=== PATIENT | male | born 1955 | race Two or more races ===

== ENCOUNTER 2019-06-05 19:36 | Emergency (ER) | payer SELFPAY ==
[~2019-06-05] VITALS: Ht 172.7 cm; Wt 81.2 kg
[2019-06-05 20:00] VITALS: BP 167/92
[2019-06-05] MEDS ORDERED: ORPHENADRINE CITRATE 60 MG/2 ML VIAL. IM ONE (20:30)
[2019-06-05] MEDS ORDERED: KETOROLAC 60 MG/2 ML VIAL. IM ONE (20:30)
--- NOTE | 2019-06-05 21:03 | PHYS DOC ---
Past Medical History Past Medical History: Diabetes-Type I, Hypertension, Prostatitis Additional Past Medical Histor: HEPATITIS Additional Past Surgical Histo: RENAL; NASAL Alcohol Use: None Drug Use: None Adult General Chief Complaint Chief Complaint: Neck Pain HPI HPI Patient is a 63 year old male presenting to the ED with a chief complaint of left upper thoracic paraspinal tenderness. Patient denies injury. Patient states that the pain isn't present for the last couple days. Patient states that the pain is worse when he moves his shoulder. Review of Systems Review of Systems Constitutional: Denies fever or chills [] Eyes: Denies change in visual acuity, redness, or eye pain [] HENT: Denies nasal congestion or sore throat [] Respiratory: Denies cough or shortness of breath [] Cardiovascular: No additional information not addressed in HPI [] GI: Denies abdominal pain, nausea, vomiting, bloody stools or diarrhea [] Musculoskeletal: Pains of pain in the left upper back paraspinal Neurologic: Denies headache, focal weakness or sensory changes [] All other systems were reviewed and found to be within normal limits, except as documented in this note. Current Medications Current Medications Current Medications Medications (Trade) Dose Ordered Sig/Samantha Start Time Stop Time Status Last Admin Dose Admin Ketorolac Tromethamine (Toradol Im) 60 mg 1X ONCE 06/05/19 20:30 06/05/19 20:45 DC 06/05/19 20:51 60 MG Orphenadrine Citrate (Norflex) 60 mg 1X ONCE 06/05/19 20:30 06/05/19 20:45 DC 06/05/19 20:50 60 MG Allergies Allergies Allergies Coded Allergies Type Severity Reaction Last Updated Verified No Known Drug Allergies 06/05/19 No Physical Exam Physical Exam Constitutional: Well developed, well nourished, no acute distress, non-toxic appearance. [] HENT: Normocephalic, atraumatic, point tenderness to the left trapezius muscle area. No erythema. Eyes: PERRLA, EOMI, conjunctiva normal, no discharge. [] Neck: Normal range of motion, no tenderness, supple, no stridor. [] Cardiovascular:Heart rate regular rhythm, no murmur [] Lungs & Thorax: Bilateral breath sounds clear to auscultation [] Abdomen: Bowel sounds normal, soft, no tenderness Skin: Warm, dry, no erythema, no rash. [] Back: No tenderness, no CVA tenderness. [] Extremities: No tenderness, no cyanosis, no clubbing, ROM intact Neurologic: Alert and oriented X 3, normal motor function, normal sensory function, no focal deficits noted. [] Current Patient Data Vital Signs Vital Signs Date Time Temp Pulse Resp B/P (MAP) Pulse Ox O2 Delivery O2 Flow Rate FiO2 06/05/19 20:00 97.8 97 18 167/92 (117) 96 Room Air 97.8 EKG EKG [] Radiology/Procedures Radiology/Procedures [] Course & Med Decision Making Course & Med Decision Making We treat with Toradol IM and Norflex IM. Patient will be discharged home on Flexeril and [place]. Discussed plan of care with patient. Patient is instructed to follow up with PCP in one to 2 days. Appropriate discharge instructions given to patient to return to the ED or to seek immediate medical evaluation. Dragon Disclaimer Dragon Disclaimer This electronic medical record was generated, in whole or in part, using a voice recognition dictation system. Departure Departure Impression: Primary Impression: Muscle strain Disposition: 01 HOME, SELF-CARE Condition: IMPROVED Referrals: NO PCP (PCP) Additional Instructions: Appropriate discharge instructions given to patient to return to the ED or to seek immediate medical evaluation. Patient instructed to follow up with PCP in one to 2 days. Patient instructed to return to the ED if symptoms worsen or if any concerns. Scripts Hydrocodone/Apap 5-325 (NORCO 5-325 TABLET) 1 Each Tablet 1 TAB PO BID, #10 TAB Prov: TAE ECHOLS DO 06/05/19 Cyclobenzaprine Hcl (CYCLOBENZAPRINE HCL) 5 Mg Tablet 1 TAB PO TID for 7 Days, #21 TAB Prov: TAE ECHOLS DO 06/05/19 TAE ECHOLS DO Jun 05, 2019 21:03
[2019-06-05] MEDS ORDERED: HYDR-3164 PO (21:06)
[2019-06-05] MEDS ORDERED: CYCL5TAB PO (21:06)
== END 2019-06-05 21:23 | disposition home or self-care (01) ==
LOC: ER 19:36
DX: S29.012A Strain of muscle and tendon of back wall of thorax, initial encounter (principal); E10.9 Type 1 diabetes mellitus without complications; I10 Essential (primary) hypertension; X58.XXXA Exposure to other specified factors, initial encounter; Y93.89 Activity, other specified; Y92.89 Other specified places as the place of occurrence of the external cause; Y99.8 Other external cause status
CPT/HCPCS: 96372; 99284; J1885; J2360

== ENCOUNTER 2021-05-06 16:56 | Emergency (ER) | payer MEDICARE, MEDICAID ==
[~2021-05-06] VITALS: Ht 167.6 cm; Wt 81.0 kg
[~2021-05-06 16:56] MED LIST: CYCL5TAB PO; HYDR-3164 PO
[2021-05-06 18:42] LABS: BILIRUBIN,URINE SMALL (NEG); CLARITY,URINE CLEAR; COLOR,URINE ORANGE; NITRITE,URINE POSITIVE (NEG); PROTEIN,URINE >=300 mg/dL (NEG-TRACE)
[2021-05-06 18:52] LABS: BACTERIA,URINE MODERATE /HPF (0-FEW); HYALINE CASTS, URINE MODERATE /HPF
[2021-05-06 18:53] LABS: RBC,URINE 0 /HPF (0-2)
[2021-05-06] MEDS ORDERED: MORPHINE SULFATE 2 MG/ML INJ. IVP PRN (19:00)
[2021-05-06] MEDS ORDERED: ACETAMINOPHEN 325 MG TABLET. PO PRN (19:00)
[2021-05-06] MEDS ORDERED: ONDANSETRON PF 4 MG/2 ML VIAL. IVP PRN (19:00)
[2021-05-06] MEDS ORDERED: IV NORMAL SALINE 1000ML BAG 1,000 ML IV ONE (19:00)
[2021-05-06 19:03] VITALS: BP 160/82
[2021-05-06 19:12] LABS: BASO # 0.1 x10^3/uL (0.0-0.2); BASO % 1 % (0-3); EOS # 0.8 x10^3/uL (0.0-0.7); EOS % 7 % (0-3); HEMATOCRIT 33.5 % (39.0-53.0); HEMOGLOBIN 11.9 g/dL (13.0-17.5); LYMPH # 2.2 x10^3/uL (1.0-4.8); LYMPH % 20 % (24-48); MEAN CORPUSCULAR HEMOGLOBIN 30 pg (25-35); MEAN CORPUSCULAR HGB CONC 36 g/dL (31-37); MEAN CORPUSCULAR VOLUME 84 fL (79-100); MONO % 9 % (0-9); NEUT # 6.9 x10^3/uL (1.8-7.7); NEUT % 62 % (31-73); PLATELET COUNT 784 x10^3/uL (140-400); RED BLOOD COUNT 3.99 x10^6/uL (4.30-5.70); RED CELL DISTRIBUTION WIDTH 13.2 % (11.5-14.5)
[2021-05-06] MEDS ORDERED: MORPHINE SULFATE 2 MG/ML INJ. IVP ONE (19:15)
[2021-05-06] MEDS ORDERED: TAMSULOSIN 0.4 MG CAP.ER.24H. PO ONE (19:15)
[2021-05-06 19:23] LABS: CALCIUM 8.8 mg/dL (8.5-10.1); CREATININE 1.7 mg/dL (0.7-1.3); GFR 40.8; POTASSIUM 4.2 mmol/L (3.5-5.1)
[2021-05-06 19:28] LABS: ALBUMIN 3.3 g/dL (3.4-5.0); ALBUMIN/GLOBULIN RATIO 0.8 (1.0-1.7); TOTAL BILIRUBIN 0.4 mg/dL (0.2-1.0); TOTAL PROTEIN 7.2 g/dL (6.4-8.2)
--- NOTE | 2021-05-06 19:41 | PHYS DOC ---
Past Medical History Past Medical History: Diabetes-Type II, Hypertension, Kidney Stone, Prostatitis, UTI Additional Past Medical Histor: HEPATITIS (BAMBIFLO López [employer]) Past Surgical History: Other Additional Past Surgical Histo: kidney stone, nasal sx (BAMBIFLO López [employer]) Smoking Status: Former Smoker Alcohol Use: None Drug Use: None (BAMBIFLO López [employer]) General Adult EDM: Chief Complaint: BACK PAIN - NO INJURY HPI: HPI: Patient is a 65 year old male with history of diabetes type 2, hypertension, kidney stones, UTI, prostatitis, who presents the ED today complaining of mild intermittent mid and low back pain, symptoms have been going on for 15 days. Patient states he was diagnosed with UTI around March 24, 2021, he states he completed levofloxacin. He states symptoms have gradually returned. Denies any hematuria, denies any nausea or vomiting. Denies anything specifically exacerbating or relieving his pain. Describes the pain as sharp. (FLO PRICE [employer] MAKER) Review of Systems: Review of Systems: Constitutional: Denies fever or chills. [] Eyes: Denies change in visual acuity. [] HENT: Denies nasal congestion or sore throat. [] Respiratory: Denies cough or shortness of breath. [] Cardiovascular: Denies chest pain or edema. [] GI: Denies abdominal pain, nausea, vomiting, bloody stools or diarrhea. [] : Reports bilateral flank pain. Denies dysuria. [] Musculoskeletal: Reports low back pain Integument: Denies rash. [] Neurologic: Denies headache, focal weakness or sensory changes. [] Psychiatric: Denies depression or anxiety. [] (FLO PRICE [employer]KER) Heart Score: C/O Chest Pain: N/A Risk Factors: Risk Factors: DM, Current or recent (<one month) smoker, HTN, HLP, family history of CAD, obesity. Risk Scores: Score 0 - 3: 2.5% MACE over next 6 weeks - Discharge Home Score 4 - 6: 20.3% MACE over next 6 weeks - Admit for Clinical Observation Score 7 - 10: 72.7% MACE over next 6 weeks - Early Invasive Strategies (FLO PRICE [employer]) Current Medications: Current Medications Medications (Trade) Dose Ordered Sig/Samantha Start Time Stop Time Status Last Admin Dose Admin Acetaminophen (Tylenol) 650 mg PRN Q4HRS PRN 05/06/21 19:00 05/07/21 18:59 Morphine Sulfate (Morphine Sulfate) 1 mg PRN Q2HR PRN 05/06/21 19:00 05/07/21 18:59 Ondansetron HCl (Zofran) 4 mg PRN Q8HRS PRN 05/06/21 19:00 05/07/21 18:59 Sodium Chloride 1,000 ml @ 1,000 mls/hr 1X ONCE 05/06/21 19:00 05/06/21 19:59 05/06/21 19:10 1,000 MLS/HR Tamsulosin HCl (Flomax) 0.4 mg 1X ONCE 05/06/21 19:15 05/06/21 19:16 DC 05/06/21 19:10 0.4 MG (MUTMEGHANAA,FLO M [employer] MAKER) Allergies: Allergies: Allergies Coded Allergies Type Severity Reaction Last Updated Verified No Known Drug Allergies 06/05/19 No (MUTUNGA,FLO M [employer] MAKER) Physical Exam: PE: Constitutional: Well developed, well nourished, no acute distress, non-toxic appearance. [] HENT: Normocephalic, atraumatic, bilateral external ears normal, oropharynx moist, no oral exudates, nose normal. [] Eyes: PERRLA, EOMI, conjunctiva normal, no discharge. [] Neck: Normal range of motion, no tenderness, supple, no stridor. [] Cardiovascular:Heart rate regular rhythm, no murmur [] Lungs & Thorax: Bilateral breath sounds clear to auscultation [] Abdomen: Bowel sounds normal, soft, no tenderness, no masses, no pulsatile masses. [] Skin: Warm, dry, no erythema, no rash. [] Back: No tenderness, mild bilateral CVA tenderness. [] Extremities: No tenderness, no cyanosis, no clubbing, ROM intact, no edema. [] Neurologic: Alert and oriented X 3, normal motor function, normal sensory function, no focal deficits noted. [] Psychologic: Affect normal, judgement normal, mood normal. [] (MUTUNGA,FLO M [employer] MAKER) Current Patient Data: Labs: Laboratory Tests Test 05/06/21 18:30 05/06/21 19:05 Urine Collection Type Unknown Urine Color [place] Urine Clarity Clear Urine pH 5.0 (<5.0-8.0) Urine Specific [place] 1.025 (1.000-1.030) Urine Protein >=300 mg/dL (NEG-TRACE) Urine Glucose (UA) Negative mg/dL (NEG) Urine Ketones (Stick) Trace mg/dL (NEG) Urine Blood Negative (NEG) Urine Nitrite Positive (NEG) Urine Bilirubin Small (NEG) Urine Urobilinogen Dipstick 1.0 mg/dL (0.2 mg/dL) Urine Leukocyte Esterase Negative (NEG) Urine RBC 0 /HPF (0-2) Urine WBC 5-10 /HPF (0-4) Urine Squamous Epithelial Cells Occ /LPF Urine Bacteria Moderate /HPF (0-FEW) Urine Hyaline Casts Moderate /HPF Urine Mucus Mod /LPF White Blood Count 11.0 x10^3/uL (4.0-11.0) Red Blood Count 3.99 x10^6/uL (4.30-5.70) L Hemoglobin 11.9 g/dL (13.0-17.5) L Hematocrit 33.5 % (39.0-53.0) L Mean Corpuscular Volume 84 fL (79-100) Mean Corpuscular Hemoglobin 30 pg (25-35) Mean Corpuscular Hemoglobin Concent 36 g/dL (31-37) Red Cell Distribution Width 13.2 % (11.5-14.5) Platelet Count 784 x10^3/uL (140-400) H Neutrophils (%) (Auto) 62 % (31-73) Lymphocytes (%) (Auto) 20 % (24-48) L Monocytes (%) (Auto) 9 % (0-9) Eosinophils (%) (Auto) 7 % (0-3) H Basophils (%) (Auto) 1 % (0-3) Neutrophils # (Auto) 6.9 x10^3/uL (1.8-7.7) Lymphocytes # (Auto) 2.2 x10^3/uL (1.0-4.8) Monocytes # (Auto) 1.0 x10^3/uL (0.0-1.1) Eosinophils # (Auto) 0.8 x10^3/uL (0.0-0.7) H Basophils # (Auto) 0.1 x10^3/uL (0.0-0.2) Sodium Level 140 mmol/L (136-145) Potassium Level 4.2 mmol/L (3.5-5.1) Chloride Level 106 mmol/L (98-107) Carbon Dioxide Level 24 mmol/L (21-32) Anion Gap 10 (6-14) Blood Urea Nitrogen 37 mg/dL (8-26) H Creatinine 1.7 mg/dL (0.7-1.3) H Estimated GFR (Cockcroft-Gault) 40.8 BUN/Creatinine Ratio 22 (6-20) H Glucose Level 144 mg/dL (70-99) H Calcium Level 8.8 mg/dL (8.5-10.1) Total Bilirubin 0.4 mg/dL (0.2-1.0) Aspartate Amino Transferase (AST) 7 U/L (15-37) L Alanine Aminotransferase (ALT) 8 U/L (16-63) L Alkaline Phosphatase 127 U/L (46-116) H Total Protein 7.2 g/dL (6.4-8.2) Albumin 3.3 g/dL (3.4-5.0) L Albumin/Globulin Ratio 0.8 (1.0-1.7) L Laboratory Tests 05/06/21 19:05 Laboratory Tests 05/06/21 19:05 Vital Signs: Vital Signs Date Time Temp Pulse Resp B/P (MAP) Pulse Ox O2 Delivery O2 Flow Rate FiO2 05/06/21 19:11 16 96 Room Air 05/06/21 18:39 97.7 79 174/92 (119) 97.7 (FLO PRICE APRN) EKG: EKG: [] (FLO PRICE APRN) Radiology/Procedures: Radiology/Procedures: []PROCEDURE: CT ABDOMEN PELVIS WO CONTRAST EXAMINATION: CT abdomen and pelvis without IV contrast. INDICATION:65 years, Male, flank pain. History of stones.. TECHNIQUE: Axial CT images of the abdomen and pelvis were obtained. Coronal and sagittal reformatted performed. COMPARISON: None. Exposure: One or more of the following individualized dose reduction techniques were utilized for this examination: 1. Automated exposure control 2. Adjustment of the mA and/or kV according to patient size 3. Use of iterative reconstruction technique. FINDINGS: LOWER CHEST: Bibasilar subsegmental atelectasis versus scarring. ABDOMEN/PELVIS: Within the limitation of noncontrast exam, No hydronephrosis or nephrolithiasis in either kidney. Nonspecific bilateral perinephric fat stranding. Possible urothelial thickening of the renal pelvises. Decompressed urinary bladder which limits evaluation. Mild hepatomegaly measures up to 18 cm in length. Mild splenomegaly measures up to 15.5 cm in length. Decompressed gallbladder which limits evaluation. No biliary ductal dilation. Unremarkable pancreas. No adrenal nodule. No bowel obstruction or wall thickening. Normal appendix. Mild to moderate aortoiliac atherosclerotic calcifications without dilatation. No pneumoperitoneum or ascites. No lymphadenopathy in the abdomen or pelvis by size criteria. Unremarkable prostate. MUSCULOSKELETAL: No acute osseous process. Degenerative changes in thoracolumbar spine. Small fat-containing umbilical hernia. IMPRESSION: 1. No evidence of nephrolithiasis or hydronephrosis. 2. Nonspecific bilateral perinephric fat stranding. Possible urothelial thickening of the renal pelvises. Correlate for urinary tract infection. 3. Mild hepatosplenomegaly. Electronically signed by: Donna Salgado MD (05/06/2021 7:36 PM) [facility] DICTATED and SIGNED BY: DONNA SALGADO MD DATE: 05/06/21 [id number] (FLO PRICE APRN) Course & Med Decision Making: Course & Med Decision Making Pertinent Labs and Imaging studies reviewed. (See chart for details) This is a 65-year-old male patient presenting to the ED today complaining of bilateral flank pain, symptoms have been going on for 15 days. He was diagnosed with UTI roughly a month and a half ago and was treated with Levaquin which he completed. He presents today stating symptoms have returning. Patient is afebrile. Urine noted for infection. CBC with a normal WBC. Hemoglobin 11.9 with hematocrit of 33.5. Creatinine 1.7, BUN 37. CT of the abdomen and pelvis was negative for kidney stones, noted for pyelonephritis. Patient was given Rocephin in the ED. He was offered admission, he states his is complaining he has been in the ED for too long and she needs to be discharged. He was given a prescription for Augmentin. He has good follow-up with his own PCP. He was instructed to follow-up in the next 7 days. He was instructed to push fluids. He was provided return precautions and discharged in stable condition (FLO PRICE APRN) Course & Med Decision Making Patients Care and treatment plan provided by ER Nurse Practitioner. I was available for consult. Patient's chart reviewed. (CAMELIA HOLLY DO) [place] Disclaimer: Dragvidhya Disclaimer: This electronic medical record was generated, in whole or in part, using a voice recognition dictation system. (FLO PRICE APRN) Departure Departure Impression: Primary Impression: Pyelonephritis Additional Impressions: Anemia Qualified Codes: D64.9 - Anemia, unspecified Acute kidney injury Disposition: HOME / SELF CARE / HOMELESS Condition: STABLE Referrals: NO PCP (PCP) Follow-up with your doctor in the course of this week Patient Instructions: Acute Kidney Injury, Anemia, Nonspecific-Brief, Pyelonephritis, Adult, [id number] Additional Instructions: You were evaluated in the emergency room and noted to have a kidney infection. You do not have a kidney stone today, you also have kidney disease. We ask you to push fluids. Take the prescribed antibiotics until completed. Follow-up with your own doctor in the course of this week or next week. Scripts Amoxicillin/Potassium Clav (AUGMENTIN 875-125 TABLET) 1 Each Tablet 1 TAB PO BID for 10 Days, #20 TAB 0 Refills Prov: FLO PRICE APRN 05/06/21 FLO PRICE APRN May 06, 2021 19:40 CAMELIA HOLLY DO May 06, 2021 22:41
[2021-05-06] MEDS ORDERED: AMOX1TAB61 PO (20:04)
[2021-05-06] MEDS ORDERED: cefTRIAXone IV Push 1 GM VIAL. IVP ONE (20:15)
--- NOTE | 2021-05-07 16:56 | NUR ---
IP: Attempted to call negative COVID19 test results to patient. Voicemail message to please return call.
--- NOTE | 2021-05-08 09:37 | NUR ---
IP: Patient notified of negative COVID19 test. Acknowledged understanding.
== END 2021-05-06 20:33 | disposition home or self-care (01) ==
LOC: ER 16:56
DX: N12 Tubulo-interstitial nephritis, not specified as acute or chronic (principal); D64.9 Anemia, unspecified; N17.9 Acute kidney failure, unspecified; E11.9 Type 2 diabetes mellitus without complications; I10 Essential (primary) hypertension; Z87.891 Personal history of nicotine dependence
CPT/HCPCS: 36415; 74176; 80053; 81001; 85025; 87086; 87426; 96361; 96374; 96375; 99284; J0696; J2270; J7030; U0003; U0005